=== PATIENT | female | born 1985 | race Two or more races ===

== ENCOUNTER 2019-07-18 22:02 | Emergency (ER) | payer OTHER ==
--- NOTE | 2019-07-18 22:56 | ED ---
Abdominal Pain/Female - HPI Summary HPI Summary: Patient complains of epigastric pain radiating to left lower chest associated with some mildly difficult SOB starting 2 hours ago. Patient states she is having stressful day, pain started while lying down. Pain described as intermittent pressure that comes in waves 5 minutes and then completely resolves and returns again. No SOB when pain has ceased. History of same 3 prior episodes 2 years ago associated with stress. Symptoms are not made worse with food, and not related to exertion. Denies fever, cough, sore throat, N/3/D , change in urine, change in BM, vaginal symptoms. Denies recent long travel, recent trauma or surgery, unilateral leg pain, history of , history of cancer, history of hormone use, history of hemoptysis. Patient states she took 1 Plan B pill earlier today. Not on oral contraception regularly. No prior history of blood clots. Medical history is none. Abdominal surgical history is 1. - History of Current Complaint Chief Complaint: EDChestWallPain Stated Complaint: ABD PAIN PER PT Time Seen by Provider: 07/18/19 22:38 Hx Obtained From: Patient Onset/Duration: Sudden Onset, Lasting Hours Timing: Minutes Severity Initially: Mild Severity Currently: Mild Pain Intensity: 4 Pain Scale Used: 0-10 Numeric Location: Epigastric Radiates: Yes Radiates to: Chest Character: Dull Alleviating Factor(s): Spontaneous Resolution Associated Signs and Symptoms: Positive: Negative Allergies/Adverse Reactions: Allergies Allergy/AdvReac Type Severity Reaction Status Date / Time No Known Allergies Allergy Verified 07/18/19 22:12 PMH/Surg Hx/FS Hx/Imm Hx Endocrine/Hematology History: Denies: Hx Anticoagulant Therapy Cardiovascular History: Denies: Hx Pacemaker/ICD History: Denies: Hx Dialysis Sensory History: Denies: Hx Eye Prosthesis Opthamlomology History: Denies: Hx Legally Blind EENT History: Denies: Hx Deafness Neurological History: Denies: Hx Dementia Infectious Disease History: No Infectious Disease History: Denies: Traveled Outside the [place] in Last 30 Days - Family History Known Family History: Positive: Non-Contributory - Social History Alcohol Use: Weekly Substance Use Type: Reports: None Smoking Status (MU): Light Every Day Tobacco Smoker Review of Systems Constitutional: Negative Eyes: Negative ENT: Negative Positive: Chest Pain Positive: Shortness Of Breath Gastrointestinal: Negative Genitourinary: Negative Musculoskeletal: Negative Skin: Negative Neurological: Negative Psychological: Normal All Other Systems Reviewed And Are Negative: Yes Physical Exam - Summary Physical Exam Summary: No pain with palpation of epigastric area or abdomen. Chest pain not reproducible. Lung sounds clear to auscultation bilaterally. Triage Information Reviewed: Yes Vital Signs On Initial Exam: Initial Vitals Temp Pulse Resp BP Pulse Ox 98.0 F 78 18 141/92 96 07/18/19 22:13 07/18/19 22:13 07/18/19 22:13 07/18/19 22:13 07/18/19 22:13 Vital Signs Reviewed: Yes Appearance: Positive: Well-Appearing Skin: Positive: Warm Head/Face: Positive: Normal Head/Face Inspection Eyes: Positive: Normal Neck: Positive: Supple Respiratory/Lung Sounds: Positive: Clear to Auscultation Cardiovascular: Positive: Normal Abdomen Description: Positive: Nontender Musculoskeletal: Positive: Normal Neurological: Positive: Normal Psychiatric: Positive: Normal AVPU Assessment: Alert - Edgar Coma Scale Best Eye Response: 4 - Spontaneous Best Motor Response: 6 - Obeys Commands Best Verbal Response: 5 - Oriented Coma Scale Total: 15 Procedures - Sedation Patient Received Moderate/Deep Sedation with Procedure: No Diagnostics - Vital Signs Vital Signs Temp Pulse Resp BP Pulse Ox 07/18/19 22:13 98.0 F 78 18 141/92 96 - Laboratory Result Diagrams: 07/18/19 23:25 07/18/19 23:25 Lab Statement: Any lab studies that have been ordered have been reviewed, and results considered in the medical decision making process. Abdominal Pain Fem Course/Dx - Course Course Of Treatment: Patient complains of epigastric pain radiating to left lower chest associated with some mildly difficult SOB starting 2 hours ago. Patient states she is having stressful day, pain started while lying down. Pain described as intermittent pressure that comes in waves 5 minutes and then completely resolves and returns again. No SOB when pain has ceased. History of same 3 prior episodes 2 years ago associated with stress. Symptoms are not made worse with food, and not related to exertion. Denies fever, cough, sore throat, N/3/D, change in urine, change in BM, vaginal symptoms. Denies recent long travel, recent trauma or surgery, unilateral leg pain, history of , history of cancer, history of hormone use, history of hemoptysis. Patient states she took 1 Plan B pill earlier today. Not on oral contraception regularly. No prior history of blood clots. Medical history is none. Abdominal surgical history is 1. Vital signs within normal limits. Labs unremarkable. EKG sinus arrhythmia, heart rate of 69, normal P axis. No prior EKG on file. PERC negative. Patient's symptoms resolved with Ativan 0.5 mg by mouth. Chest pain likely due to stress and anxiety. - Diagnoses Provider Diagnoses: Chest pain, Stress Discharge ED - Sign-Out/Discharge Documenting (check all that apply): Patient Departure - Discharge Plan Condition: Stable Disposition: HOME Patient Education Materials: Chest Pain (ED), Stress (ED) Referrals: Amilcar Pruitt MD [Primary Care Provider] - Additional Instructions: Follow-up with your primary care doctor. Return to the ED for any new or worsening symptoms. - Billing Disposition and Condition Condition: STABLE Disposition: Home
[2019-07-18] MEDS ORDERED: LORazepam TAB(*) 1 MG PO ONE (23:00)
[2019-07-18 23:32] LABS: ABS Basophils 0.1 10^3/ul (0-0.2); ABS Eosinophils 0.1 10^3/ul (0-0.6); ABS Lymphocytes 3.4 10^3/ul (1.0-4.8); ABS Monocytes 0.6 10^3/ul (0-0.8); ABS Neutrophils 4.9 10^3/ul (1.5-7.7); Eosinophil % 1.5 %; Hematocrit 41 % (35-47); Mean Corpuscular HGB Conc 35 g/dL (31-36); Mean Corpuscular Hemoglobin 31 pg (27-31); Mean Corpuscular Volume 90 fL (80-97); Mean Platelet Volume 8.1 fL (7.4-10.4); Nucleated Red Blood Cells % 0.1; Platelet Count 210 10^3/uL (150-450); Red Cell Distribution Width 13 % (10-15); White Blood Count 9.1 10^3/uL (3.5-10.8)
[2019-07-18 23:50] LABS: ALT 14 U/L (7-52); AST 14 U/L (13-39); Albumin 4.3 g/dL (3.2-5.2); Albumin/Globulin Ratio 1.6 (1-3); Alkaline Phosphatase 42 U/L (34-104); Anion Gap 4 mmol/L (2-11); BUN/Creatinine Ratio 25.8 (8-20); Blood Urea Nitrogen 17 mg/dL (6-24); C Reactive Protein < 1.00 mg/L (<8.01); CO2 Carbon Dioxide 29 mmol/L (22-32); Calcium 9.4 mg/dL (8.6-10.3); Chloride 103 mmol/L (101-111); EGFR African American 125.6 (>60); EGFR Non-African American 103.8 (>60); Globulin 2.7 g/dL (2-4); Glucose 121 mg/dL (70-100); Potassium 3.8 mmol/L (3.5-5.0); Sodium 136 mmol/L (135-145)
[2019-07-18 23:57] LABS: HCG Pregnancy < 0.60 mIU/mL
[2019-07-19 00:22] VITALS: BP 102/81
== END 2019-07-19 00:21 | disposition home or self-care (01) ==
LOC: ED 22:02
DX: R07.9 Chest pain, unspecified (principal); F43.9 Reaction to severe stress, unspecified; R10.9 Unspecified abdominal pain; F17.210 Nicotine dependence, cigarettes, uncomplicated
CPT/HCPCS: 36415; 80053; 83690; 84484; 84702; 85025; 86140; 93005; 99282; A9270-GY

== ENCOUNTER 2019-08-09 17:36 | Emergency (ER) | payer OTHER ==
--- NOTE | 2019-08-09 18:36 | ED ---
GI/ HPI - HPI Summary HPI Summary: Patient complains of intermittent vaginal spotting, and fell over from vagina 2 weeks. Spotting is dark brown. Denies fever, cough, sore throat, CP, SOB, N/ V/D, abdominal pain, change in urine, change in BM. Medical history is none. Patient uses tampons. - History of Current Complaint Chief Complaint: EDVaginalBleeding Time Seen by Provider: 08/09/19 18:25 Stated Complaint: VAGINAL BLEED PER PT Hx Obtained From: Patient Onset/Duration: Started Weeks Ago Timing: Intermittent Severity: Moderate Current Severity: None Pain Intensity: 0 Associated Signs and Symptoms: Positive: Negative - Allergy/Home Medications Allergies/Adverse Reactions: Allergies Allergy/AdvReac Type Severity Reaction Status Date / Time No Known Allergies Allergy Verified 08/09/19 17:44 PMH/Surg Hx/FS Hx/Imm Hx Endocrine/Hematology History: Denies: Hx Anticoagulant Therapy Cardiovascular History: Denies: Hx Pacemaker/ICD History: Denies: Hx Dialysis Sensory History: Denies: Hx Eye Prosthesis, Hx Legally Blind, Hx Deafness Opthamlomology History: Denies: Hx Eye Prosthesis, Hx Legally Blind EENT History: Denies: Hx Deafness Neurological History: Denies: Hx Dementia Infectious Disease History: No Infectious Disease History: Denies: Traveled Outside the [place] in Last 30 Days - Family History Known Family History: Positive: Non-Contributory - Social History Alcohol Use: Weekly Substance Use Type: Reports: None Smoking Status (MU): Light Every Day Tobacco Smoker Review of Systems Constitutional: Negative Eyes: Negative ENT: Negative Cardiovascular: Negative Respiratory: Negative Gastrointestinal: Negative Positive: other Musculoskeletal: Negative Skin: Negative Neurological: Negative Psychological: Normal All Other Systems Reviewed And Are Negative: Yes Physical Exam - Summary Physical Exam Summary: Purulent tampon removed from back of vagina. Kumari of vaginal vault irritated and mildly bleeding in places. Cleaned with swabs. Otherwise normal pelvic exam. Triage Information Reviewed: Yes Vital Signs On Initial Exam: Initial Vitals Temp Pulse Resp BP Pulse Ox 98.8 F 95 16 139/81 100 08/09/19 17:39 08/09/19 17:39 08/09/19 17:39 08/09/19 17:39 08/09/19 17:39 Vital Signs Reviewed: Yes Appearance: Positive: Well-Appearing Skin: Positive: Warm Head/Face: Positive: Normal Head/Face Inspection Eyes: Positive: Normal Neck: Positive: Supple Respiratory/Lung Sounds: Positive: Clear to Auscultation Cardiovascular: Positive: Normal Abdomen Description: Positive: Nontender Pelvic Exam: Positive: External Exam Normal, No Cerv. Motion Tender, No Masses, Active Bleeding - Very mild spotting., Discharge, Other - foreign body present. Negative: Cervicitis, Lesions, Mass, Tender w/ Cervical Motion, Tender Adnexa , Tender Uterus Procedures - Sedation Patient Received Moderate/Deep Sedation with Procedure: No Diagnostics - Vital Signs Vital Signs Temp Pulse Resp BP Pulse Ox 08/09/19 17:39 98.8 F 95 16 139/81 100 - Laboratory Result Diagrams: 08/09/19 18:53 08/09/19 18:53 Lab Statement: Any lab studies that have been ordered have been reviewed, and results considered in the medical decision making process. GIGU Course/Dx - Course Course Of Treatment: Patient complains of intermittent vaginal spotting, and fell over from vagina 2 weeks. Spotting is dark brown. Denies fever, cough, sore throat, CP, SOB, N/V/D, abdominal pain, change in urine, change in BM. Medical history is none. Patient uses tampons. Vital signs within normal limits. Tampon, removed from back of vaginal vault. Patient started on doxycycline and Flagyl. - Diagnoses Provider Diagnoses: Vaginal foreign body Discharge ED - Sign-Out/Discharge Documenting (check all that apply): Patient Departure - Discharge Plan Condition: Stable Disposition: HOME Prescriptions: DOXYcycline CAP(*) [DOXYcycline 100MG CAP(*)] 100 mg PO BID 14 Days #28 cap metroNIDAZOLE [Flagyl 500 MG TAB] 500 mg PO BID 14 Days #28 tab Patient Education Materials: Vaginal Foreign Body (ED) Referrals: Iveth Saenz MD [Medical Doctor] - Amilcar Pruitt MD [Primary Care Provider] - Additional Instructions: Take doxycycline twice a day for 14 days. Take Flagyl twice a day for 14 days. Drinking alcohol while taking Flagyl can make you vomit. Avoid sexual activity for 2 weeks. Follow-up with your [facility] for further evaluation. Return to the ED for any new or worsening symptoms. - Billing Disposition and Condition Condition: STABLE Disposition: Home
[2019-08-09 19:00] LABS: ABS Basophils 0.1 10^3/ul (0-0.2); ABS Eosinophils 0.1 10^3/ul (0-0.6); ABS Monocytes 0.5 10^3/ul (0-0.8); ABS Neutrophils 3.5 10^3/ul (1.5-7.7); Eosinophil % 1.4 %; Hematocrit 37 % (35-47); Hemoglobin 12.9 g/dL (12.0-16.0); Lymphocyte % 32.3 %; Mean Corpuscular HGB Conc 35 g/dL (31-36); Mean Corpuscular Hemoglobin 31 pg (27-31); Mean Corpuscular Volume 89 fL (80-97); Mean Platelet Volume 7.7 fL (7.4-10.4); Nucleated Red Blood Cells % 0.1; Platelet Count 222 10^3/uL (150-450); Red Blood Count 4.21 10^6 /uL (3.70-4.87); Red Cell Distribution Width 13 % (10-15); White Blood Count 6.1 10^3/uL (3.5-10.8)
[2019-08-09 19:13] LABS: Urine Appearance Clear; Urine Bilirubin Negative (Negative); Urine Blood 1+ (Negative); Urine Color Yellow; Urine Glucose Negative (Negative); Urine Ketones Negative (Negative); Urine Nitrite Negative (Negative); Urine Protein Negative (Negative); Urine Specific Gravity 1.016 (1.010-1.030); Urine Urobilinogen Negative (Negative)
[2019-08-09 19:17] LABS: Urine Bacteria Absent (Absent); Urine Red Blood Cell 1+(3-5/hpf) (Absent); Urine Squamous Epithelial Cell Present (Absent); Urine White Blood Cell Absent (Absent)
[2019-08-09 19:18] LABS: ALT 9 U/L (7-52); AST 14 U/L (13-39); Albumin/Globulin Ratio 1.3 (1-3); Alkaline Phosphatase 51 U/L (34-104); Anion Gap 5 mmol/L (2-11); BUN/Creatinine Ratio 24.6 (8-20); Blood Urea Nitrogen 16 mg/dL (6-24); C Reactive Protein 2.79 mg/L (<8.01); CO2 Carbon Dioxide 28 mmol/L (22-32); Calcium 9.2 mg/dL (8.6-10.3); Chloride 105 mmol/L (101-111); EGFR African American 127.8 (>60); EGFR Non-African American 105.6 (>60); Glucose 108 mg/dL (70-100); Potassium 3.7 mmol/L (3.5-5.0); Sodium 138 mmol/L (135-145)
[2019-08-09 19:26] LABS: HCG Pregnancy < 0.60 mIU/mL
[2019-08-09] MEDS ORDERED: Lidocaine 1% MPF ** 5 ML VIAL IM ONE (20:02)
[2019-08-09] MEDS ORDERED: cefTRIAXone VIAL(*) 250 MG VIAL IM ONE (20:02)
[2019-08-09] MEDS ORDERED: metroNIDAZOLE TAB* 250 MG PO ONE (20:03)
[2019-08-09] MEDS ORDERED: DOXYcycline CAP(*) 100 MG PO ONE (20:03)
[2019-08-09 20:33] VITALS: BP 118/72
[2019-08-10 13:12] LABS: Chlamydia trachomatis NAA Negative (Negative); Neisseria gonorrhoeae (GC) NAA Negative (Negative)
[2019-08-11 12:02] LABS: Trichomonas vag NAA Female Negative (Negative)
== END 2019-08-09 20:33 | disposition home or self-care (01) ==
LOC: ED 17:36
DX: T19.2XXA Foreign body in vulva and vagina, initial encounter (principal); X58.XXXA Exposure to other specified factors, initial encounter; Y92.9 Unspecified place or not applicable; F17.200 Nicotine dependence, unspecified, uncomplicated
CPT/HCPCS: 36415; 80053; 81003; 81015; 84702; 85025; 86140; 87480; 87491; 87510; 87591; 87661; 96372; 99283; A9270-GY; J0696